=== PATIENT | male | born 1985 | race Asian ===

== ENCOUNTER 2022-03-02 14:48 | Inpatient (IN) | payer BC ==
[~2022-03-02] VITALS: Ht 167.6 cm; Wt 64.0 kg
[2022-03-02] MEDS ORDERED: CEFTRIAXONE 2 GM in SODIUM CHLORIDE 0.9% 100 ML IV SCH (15:15)
[2022-03-02] MEDS ORDERED: ONDANSETRON HCL INJ 2MG/ML 2ML 2 MG/ML VIAL IV STA (15:15)
[2022-03-02] MEDS ORDERED: Morphine 4mg INJECTION 4 MG/ML INJ IV STA (15:15)
[2022-03-02] MEDS ORDERED: SODIUM CHLORIDE 0.9% 1000ML 1,000 ML IV STA (15:15)
[2022-03-02 15:41] LABS: BASOPHILS % 0.1 % (0.0-1.0); HEMATOCRIT 39.3 % (38.2-49.6); HEMOGLOBIN 12.5 g/dL (14.0-18.0); LYMPHOCYTES # (AUTO) 0.9 (1.0-3.2); LYMPHOCYTES % 5.7 % (18.0-39.1); MEAN CORPUSCULAR HGB CONC 31.8 g/dL (31-35); MEAN CORPUSCULAR VOLUME 91.2 fL (81-99); MONOCYTES # (AUTO) 0.6 (0.2-0.8); MONOCYTES % 3.9 % (4.4-11.3); NEUTROPHILS # (AUTO) 14.2 (2.1-6.9); NEUTROPHILS % 89.9 % (38.7-80.0); PLATELET COUNT 307 x10e3/uL (140-360); RED BLOOD COUNT 4.31 x10e6/uL (4.3-5.7); RED CELL DISTRIBUTION WIDTH 11.2 % (11.7-14.4)
[2022-03-02 15:49] LABS: INR 1.06
[2022-03-02 15:50] LABS: PARTIAL THROMBOPLASTIN TIME 28.8 seconds (23.8-35.5)
[2022-03-02 15:52] LABS: CLARITY,URINE CLEAR (CLEAR); COLOR,URINE YELLOW (YELLOW)
[2022-03-02 15:53] LABS: KETONES,URINE TRACE (NEGATIVE); LEUKOCYTE ESTERASE ,URINE NEGATIVE (NEGATIVE); NITRITE,URINE NEGATIVE (NEGATIVE); PROTEIN,URINE DIPSTICK NEGATIVE (NEGATIVE); URINE UROBILINOGEN 0.2 mg/dL (0.2 - 1)
[2022-03-02 15:54] LABS: ALBUMIN 4.2 g/dL (3.5-5.0); ALBUMIN/GLOBULIN RATIO 1.6 (0.8-2.0); CREATININE, SERUM 1.02 mg/dL (0.72-1.25)
[2022-03-02 16:03] LABS: RBC,URINE 0-5 /HPF (0-5); WBC,URINE (MAN) 0-5 /HPF (0-5)
[2022-03-02 16:04] LABS: BACTERIA,URINE MODERATE /HPF; EPITHELIAL CELLS,URINE FEW /LPF
[2022-03-02 16:07] LABS: ANION GAP 16.9 mmol/L (8-16); POTASSIUM 3.9 mmol/L (3.5-5.1)
[2022-03-02] MEDS ORDERED: ACETAMINOPHEN 1000 MG/100 ML IV STA (17:27)
[2022-03-02] MEDS ORDERED: IOPAMIDOL 370 MG/ML 100 ML INFUS..BTL INJ ONE (17:45)
[2022-03-02] MEDS ORDERED: ONDANSETRON HCL INJ 2MG/ML 2ML 2 MG/ML VIAL IV PRN (19:15)
[2022-03-02] MEDS ORDERED: Morphine 4mg INJECTION 4 MG/ML INJ IV PRN (19:15)
[2022-03-02] MEDS: SODIUM CHLORIDE 0.9% 1000ML 1,000 ML IV SCH (19:43)
[2022-03-02] MEDS ORDERED: LEVOFLOXACIN 500MG/D5W 100ML 100 ML IV SCH (20:00)
[2022-03-02 20:09] VITALS: BP 107/66
[2022-03-02 20:30] VITALS: BP 107/66
[2022-03-02 21:00] VITALS: BP 107/66
[2022-03-03] VITALS (8 sets, daily range): BP systolic 95–114; BP diastolic 62–75
[2022-03-03] MEDS: SODIUM CHLORIDE 0.9% 1000ML 1,000 ML IV SCH ×3 (05:31→19:35)
[2022-03-03 05:40] LABS: BASOPHILS % 0.2 % (0.0-1.0); EOSINOPHILS % 0.2 % (0.0-6.0); HEMATOCRIT 36.3 % (38.2-49.6); HEMOGLOBIN 12.3 g/dL (14.0-18.0); LYMPHOCYTES # (AUTO) 1.8 (1.0-3.2); MEAN CORPUSCULAR HEMOGLOBIN 29.1 pg (28-32); MEAN CORPUSCULAR HGB CONC 33.9 g/dL (31-35); MONOCYTES % 6.2 % (4.4-11.3); NEUTROPHILS # (AUTO) 13.4 (2.1-6.9); NEUTROPHILS % 81.9 % (38.7-80.0); PLATELET COUNT 253 x10e3/uL (140-360); RED BLOOD COUNT 4.22 x10e6/uL (4.3-5.7); RED CELL DISTRIBUTION WIDTH 11.8 % (11.7-14.4)
[2022-03-03 06:03] LABS: CREATININE, SERUM 0.97 mg/dL (0.72-1.25)
[2022-03-03 06:04] LABS: ALBUMIN 3.3 g/dL (3.5-5.0); CALCIUM 8.3 mg/dL (8.4-10.2)
[2022-03-03] MEDS ORDERED: DOCUSATE SODIUM 100 MG CAP PO PRN (06:30)
[2022-03-03] MEDS ORDERED: ACETAMINOPHEN 325 MG TAB PO PRN (06:30)
[2022-03-03] MEDS ORDERED: ACETAMINOPHEN/CODEINE 300MG - 30MG TAB PO PRN (08:45)
[2022-03-03] MEDS ORDERED: TRAMADOL HCL 50 MG TAB PO PRN (08:45)
[2022-03-03] MEDS ORDERED: ENOXAPARIN SOD INJ 40 MG/0.4 ML SYR SC SCH (17:00)
[2022-03-04] VITALS: BP 117/74
[2022-03-04 04:00] VITALS: BP 101/60
[2022-03-04] MEDS: SODIUM CHLORIDE 0.9% 1000ML 1,000 ML IV SCH (06:01)
[2022-03-04 06:03] LABS: BASOPHILS % 0.2 % (0.0-1.0); EOSINOPHILS # (AUTO) 0.2 (0.0-0.4); EOSINOPHILS % 1.5 % (0.0-6.0); HEMOGLOBIN 11.9 g/dL (14.0-18.0); LYMPHOCYTES # (AUTO) 2.5 (1.0-3.2); MEAN CORPUSCULAR HGB CONC 31.3 g/dL (31-35); MEAN CORPUSCULAR VOLUME 92.5 fL (81-99); MONOCYTES # (AUTO) 0.7 (0.2-0.8); MONOCYTES % 6.7 % (4.4-11.3); NEUTROPHILS # (AUTO) 6.7 (2.1-6.9); NEUTROPHILS % 66.3 % (38.7-80.0); PLATELET COUNT 264 x10e3/uL (140-360); RED BLOOD COUNT 4.11 x10e6/uL (4.3-5.7); RED CELL DISTRIBUTION WIDTH 11.6 % (11.7-14.4)
[2022-03-04 06:34] LABS: CALCIUM 8.6 mg/dL (8.4-10.2); CREATININE, SERUM 1.07 mg/dL (0.72-1.25)
[2022-03-04 08:13] VITALS: BP 101/57
[2022-03-04 08:38] VITALS: BP 101/57
[2022-03-04 12:02] VITALS: BP 117/75
[2022-03-04] MEDS ORDERED: LEVOFLOXACIN250 MG PO (13:24)
[2022-03-04] MEDS ORDERED: MELOXICAM7.5 MG PO (13:25)
== END 2022-03-04 13:50 | disposition home or self-care (01) | DRG 872 ==
LOC: EDSEX 14:48 → ER 14:59 → ERHOLD 19:09 → MED/SURG3 20:18
PROVIDERS: ADMIT Internal Medicine; ATTEND Internal Medicine
DX: A41.81 Sepsis due to Enterococcus (principal); N39.0 Urinary tract infection, site not specified; N45.3 Epididymo-orchitis; N43.3 Hydrocele, unspecified; Z82.49 Family history of ischemic heart disease and other diseases of the circulatory system
CPT/HCPCS: 0223U; 36415; 74177; 76870; 80048; 80053; 81001; 83605; 85025; 85610; 85730; 87040; 87086; 87186; 93976; 99284; J0696; J1650; J1956; J2270; J2405; J2543; J7030; J7050; Q9967